=== PATIENT | male | born 1950 ===

== ENCOUNTER 2024-11-16 06:27 | Day surgery (SDC) | payer OTHER ==
[~2024-11-16 06:27] MED LIST: ATORVASTATIN CA40 MG PO; BUPIVACAINE HCL/MPF 0.5% 30ML VIAL ONE; CEFAZOLIN SODIUM 1,000 MG VIAL ONE; DOXAZOSIN MESYLA4 MG PO; FINASTERIDE5 MG PO; LIDOCAINE HCL 1%/EPINEPHRINE 20ML VIAL IJ ONE; MONTELUKAST SOD10 MG PO; PEPCID40 MG PO; SYNTHROID100 MCG PO; TAMS0.4C PO; TOPROL XL100 M1 PO; TRANEXAMIC ACID 100MG/1ML (1000MG) AMPUL IV ONE; ZANAFLEX4 M1 PO; ZIPSOR25 MG PO
[2024-11-16] MEDS ORDERED: POVIDONE-IODINE 118 ML BOTT TOP ONE (08:03)
[2024-11-16] MEDS ORDERED: DIBUCAINE 30 GM TUBE ONE (08:03)
[2024-11-16] MEDS ORDERED: METRONIDAZOLE/SODIUM CHLORIDE 500 MG/100 ML PIGGYBACK IV ONE (08:04)
[2024-11-16] MEDS ORDERED: CEFTRIAXONE SODIUM 2,000 MG VIAL ONE (08:04)
[2024-11-16] MEDS ORDERED: PERCOCET 5-3251 EACH PO (09:18)
[2024-11-16] MEDS ORDERED: RECTICARE30 GM TOP (09:19)
== END 2024-11-16 14:00 | disposition home or self-care (01) ==
LOC: CIR.AMB 06:27
PROVIDERS: ATTEND Surgery
DX: K64.2 Third degree hemorrhoids (principal); R19.4 Change in bowel habit; I10 Essential (primary) hypertension; J45.909 Unspecified asthma, uncomplicated